=== PATIENT | male | born 1975 | race Caucasian/White ===

== ENCOUNTER 2024-04-15 23:58 | Emergency (ER) | payer MEDICAID ==
[~2024-04-15] VITALS: Ht 170.2 cm; Wt 74.8 kg
[2024-04-16 00:02] VITALS: BP 138/89; PULSE 98; RESP 14; TEMP 97.3; O2SAT 99
[2024-04-16 00:08] VITALS: BP 138/89; RESP 14; TEMP 97.3
[2024-04-16] MEDS: LIDOCAINE/EPI 1% 1:100000 20 ML VIAL INJ ONE (00:42)
[2024-04-16] MEDS: BACITRACIN OINT 500 UNITS/GM PKT TP ONE (00:43)
[2024-04-16 00:45] VITALS: O2SAT 96
[2024-04-16 00:46] VITALS: PULSE 90
[2024-04-16] MEDS ORDERED: NAPR-337 PO (01:11)
[2024-04-16] MEDS ORDERED: ACET-10509 PO (01:11)
[2024-04-16] MEDS: KETOROLAC 30 MG/ML VIAL IM ONE (01:32)
== END 2024-04-16 01:32 | disposition home or self-care (01) ==
LOC: MED 23:58
DX: S22.32XA Fracture of one rib, left side, initial encounter for closed fracture (principal); S01.81XA Laceration without foreign body of other part of head, initial encounter; Y99.8 Other external cause status; Y04.0XXA Assault by unarmed brawl or fight, initial encounter; Y93.89 Activity, other specified; Y92.89 Other specified places as the place of occurrence of the external cause; Z79.1 Long term (current) use of non-steroidal anti-inflammatories (NSAID)
CPT/HCPCS: 12011; 70450; 71250; 72125; 90471; 90715; 96372; 99285; J1885; J2001; 12013